=== PATIENT | male | born 1995 | race Caucasian/White ===

== ENCOUNTER 2024-06-17 19:59 | Emergency (ER) | payer MEDICAID ==
[~2024-06-17] VITALS: Ht 172.7 cm; Wt 82.0 kg
[2024-06-17 20:04] VITALS: O2SAT 98
[2024-06-17] MEDS ORDERED: NALO4SPR BOTHNSTRLS (20:39)
[2024-06-17 21:44] LABS: BASOPHILS % 0.5 % (0.0-2.0); CHLORIDE 101 mEq/L (98-107); HEMATOCRIT. 47.8 % (42.0-52.0); HEMOGLOBIN. 16.5 g/dL (14.0-18.0); LYMPHOCYTES % 29.4 % (20.0-50.0); MEAN CORPUSCULAR HEMOGLOBIN 31.6 pg (28.0-32.0); MEAN CORPUSCULAR HGB CONC 34.6 g/dL (31.0-37.0); MEAN CORPUSCULAR VOLUME 91.4 fL (80.0-94.0); MEAN PLATELET VOLUME 7.3 fl (7.4-10.4); MONOCYTES % 4.9 % (2.0-8.0); NEUTROPHILS % 63.2 % (40.0-76.0); PLATELET 256 x1000/uL (130-400); POTASSIUM 3.8 mEq/L (3.5-5.1); RED BLOOD CELL COUNT 5.23 mill/uL (4.7-6.1); RED CELL DISTRIBUTION WIDTH 12.3 % (11.6-14.6); SODIUM 138 mEq/L (136-145); WHITE BLOOD COUNT 4.9 x1000/uL (4.5-11.0)
[2024-06-17 21:45] LABS: CARBON DIOXIDE 28 mEq/L (21-32)
[2024-06-17 21:46] LABS: CALCIUM 9.2 mg/dL (8.7-10.4)
[2024-06-17 21:50] LABS: CREATININE 0.7 mg/dL (0.6-1.3)
[2024-06-17 21:51] LABS: GLUCOSE 152 mg/dL (70-105); UREA NITROGEN BLOOD 8 mg/dL (9-23)
[2024-06-17 22:44] LABS: ETHANOL BLOOD 409 mg/dL (<10)
[2024-06-18 05:39] VITALS: BP 111/66; PULSE 88; RESP 20; TEMP 37.00296; O2SAT 98
== END 2024-06-18 05:44 | disposition home or self-care (01) ==
LOC: EDBD 19:59 → ER 19:59
DX: T40.601A Poisoning by unspecified narcotics, accidental (unintentional), initial encounter (principal); F10.129 Alcohol abuse with intoxication, unspecified; Y92.9 Unspecified place or not applicable; Y90.9 Presence of alcohol in blood, level not specified
CPT/HCPCS: 80048; 80320; 85025; 36415; 99283; Z7610; G0480

== ENCOUNTER 2024-06-18 08:58 | Emergency (ER) | payer MEDICAID ==
[~2024-06-18] VITALS: Ht 172.7 cm; Wt 69.0 kg
[~2024-06-18 08:58] MED LIST: NALO4SPR BOTHNSTRLS
[2024-06-18 09:12] VITALS: BP 154/102; PULSE 121; RESP 18; TEMP 98.3; O2SAT 97; O2SAT 99
[2024-06-18 09:53] LABS: BASOPHILS % 0.5 % (0.0-2.0); EOSINOPHILS % 0.5 % (0.0-5.0); HEMATOCRIT. 52.7 % (42.0-52.0); HEMOGLOBIN. 17.8 g/dL (14.0-18.0); LYMPHOCYTES % 19.7 % (20.0-50.0); MEAN CORPUSCULAR HEMOGLOBIN 31.6 pg (28.0-32.0); MEAN CORPUSCULAR HGB CONC 33.8 g/dL (31.0-37.0); MEAN CORPUSCULAR VOLUME 93.5 fL (80.0-94.0); MONOCYTES % 4.4 % (2.0-8.0); NEUTROPHILS % 74.9 % (40.0-76.0); RED BLOOD CELL COUNT 5.64 mill/uL (4.7-6.1); RED CELL DISTRIBUTION WIDTH 12.6 % (11.6-14.6); WHITE BLOOD COUNT 8.3 x1000/uL (4.5-11.0)
[2024-06-18 09:55] LABS: DIFFERENTIAL COMMENT 1
[2024-06-18] MEDS: MAGNESIUM/ALUMINUM HYDROXIDE/SIMETHICONE 30ML UDC PO STA (09:55)
[2024-06-18] MEDS: SODIUM CHLORIDE 0.9% 1,000 ML IV ONE (09:55)
[2024-06-18] MEDS: ONDANSETRON HCL 4MG/2ML INJ IV STA (09:55)
[2024-06-18 09:56] LABS: CHLORIDE 100 mEq/L (98-107); POTASSIUM 3.8 mEq/L (3.5-5.1); SODIUM 138 mEq/L (136-145)
[2024-06-18 09:57] LABS: CARBON DIOXIDE 23 mEq/L (21-32)
[2024-06-18 09:58] LABS: CALCIUM 9.4 mg/dL (8.7-10.4)
[2024-06-18 10:02] LABS: CREATININE 0.9 mg/dL (0.6-1.3); GLUCOSE 187 mg/dL (70-105)
[2024-06-18 10:03] LABS: ETHANOL BLOOD 218 mg/dL (<10); UREA NITROGEN BLOOD 11 mg/dL (9-23)
[2024-06-18 10:04] LABS: ALANINE AMINOTRANSFERASE 85 IU/L (10-49); ALBUMIN 4.9 g/dL (3.2-4.8); ASPARTATE AMINOTRANSFERASE 52 IU/L (<34)
[2024-06-18 10:05] LABS: BILIRUBIN DIRECT 0.3 mg/dL (<=3.0); PROTEIN TOTAL 7.8 g/dL (6.0-8.3)
[2024-06-18] MEDS: FAMOTIDINE 20MG/2ML VIAL IV STA (10:11)
[2024-06-18 10:18] LABS: INR 1.1; PROTHROMBIN TIME 12.6 sec (9.6-11.0)
[2024-06-18 10:28] LABS: PLATELET 329 x1000/uL (130-400)
== END 2024-06-18 12:11 | disposition home or self-care (01) ==
LOC: ER 09:20
DX: R10.9 Unspecified abdominal pain (principal); R11.2 Nausea with vomiting, unspecified; F10.20 Alcohol dependence, uncomplicated; Y90.9 Presence of alcohol in blood, level not specified
CPT/HCPCS: 80076; 80048; 80320; 83690; 85025; 85610; 36415; 96361; 96374; 96375; 99284; J3490; J2405; J7030; G0480

== ENCOUNTER 2025-03-01 08:06 | Inpatient (IN) | payer MEDICAID ==
[~2025-03-01] VITALS: Ht 180.3 cm; Wt 83.0 kg
[2025-03-01 08:07] VITALS: O2SAT 99
[2025-03-01 09:01] LABS: EOSINOPHILS % 1.1 % (0.0-5.0); HEMATOCRIT. 41.8 % (42.0-52.0); HEMOGLOBIN. 14.7 g/dL (14.0-18.0); LYMPHOCYTES % 12.5 % (20.0-50.0); MEAN CORPUSCULAR HEMOGLOBIN 31.8 pg (28.0-32.0); MEAN CORPUSCULAR HGB CONC 35.3 g/dL (31.0-37.0); MEAN CORPUSCULAR VOLUME 90.1 fL (80.0-94.0); MEAN PLATELET VOLUME 8.1 fl (7.4-10.4); NEUTROPHILS % 77.4 % (40.0-76.0); PLATELET 228 x1000/uL (130-400); RED BLOOD CELL COUNT 4.64 mill/uL (4.7-6.1); RED CELL DISTRIBUTION WIDTH 14.5 % (11.6-14.6); WHITE BLOOD COUNT 4.7 x1000/uL (4.5-11.0)
[2025-03-01 09:19] LABS: CHLORIDE 101 mEq/L (98-107); POTASSIUM 4.6 mEq/L (3.5-5.1); SODIUM 135 mEq/L (136-145)
[2025-03-01 09:20] LABS: CARBON DIOXIDE 25 mEq/L (21-32)
[2025-03-01 09:25] LABS: CREATININE 0.8 mg/dL (0.6-1.3)
[2025-03-01 09:26] LABS: ETHANOL BLOOD < 10 mg/dL (<10); GLUCOSE 105 mg/dL (70-105); UREA NITROGEN BLOOD 11 mg/dL (9-23)
[2025-03-01 09:30] LABS: TROPONIN I HIGH SENSITIVITY < 4 ng/L (3.0-53)
[2025-03-01 09:32] LABS: PROTHROMBIN TIME 11.1 sec (9.6-11.0)
[2025-03-01 09:50] LABS: CLARITY URINE CLEAR (CLEAR); COLOR URINE YELLOW (YELLOW); GLUCOSE URINE NEGATIVE (NEGATIVE); KETONES URINE 3+ (NEGATIVE); LEUKOCYTE ESTERASE URINE NEGATIVE (NEGATIVE); NITRITE URINE NEGATIVE (NEGATIVE); OCCULT BLOOD URINE NEGATIVE (NEGATIVE); PH URINE 7.5 (4.5-8.0); PROTEIN URINE NEGATIVE (NEGATIVE); SPECIFIC GRAVITY URINE 1.067 (1.005-1.030)
[2025-03-01 10:34] LABS: *AMPHETAMINES SCREEN URINE NEGATIVE (NEGATIVE); *BARBITURATES SCREEN URINE NEGATIVE (NEGATIVE); *BENZODIAZEPINES SCREEN URINE PRESUMPTIVE POSITIVE (NEGATIVE); *COCAINE SCREEN URINE NEGATIVE (NEGATIVE); CANNABINOID URINE SCREEN PRESUMPTIVE POSITIVE (NEGATIVE); ECSTASY MDMA SCREEN URINE NEGATIVE (NEGATIVE); METHADONE URINE SCREEN NEGATIVE (NEGATIVE); OPIATES URINE SCREEN NEGATIVE (NEGATIVE); PHENCYCLIDINE URINE SCREEN NEGATIVE (NEGATIVE)
[2025-03-01 13:30] VITALS: BP 159/104; PULSE 74; RESP 20; TEMP 36.8; O2SAT 98
[2025-03-01] MEDS ORDERED: DIPHENHYDRAMINE 50MG/ML VIAL IV PRN (13:45)
[2025-03-01] MEDS ORDERED: MAGNESIUM/ALUMINUM HYDROXIDE/SIMETHICONE 30ML UDC PO PRN (13:45)
[2025-03-01] MEDS ORDERED: DEXTROSE 50% WATER 50ML SYRINGE IV PRN (13:45)
[2025-03-01] MEDS ORDERED: ACETAMINOPHEN 325MG TABLET PO PRN (13:45)
[2025-03-01] MEDS ORDERED: ZOLPIDEM TARTRATE 5MG TABLET PO PRN (13:45)
[2025-03-01] MEDS ORDERED: ONDANSETRON HCL 4MG/2ML INJ IV PRN (13:45)
[2025-03-01] MEDS: CLONIDINE 0.1MG TABLET PO PRN (13:51)
[2025-03-01] MEDS: IOHEXOL-350 100 ML BOTTLE ONE (14:02)
[2025-03-01] MEDS: SODIUM CHLORIDE 0.9% 3ML FLUSH IVF SCH (14:06)
[2025-03-01] MEDS: ACETAMINOPHEN 325MG TABLET PO PRN (14:06)
[2025-03-01 14:19] VITALS: BP 159/104; PULSE 73; RESP 20; TEMP 36.6
[2025-03-01] MEDS ORDERED: FOLIC ACID IV SCH (14:45)
[2025-03-01] MEDS ORDERED: THIAMINE HCL IV SCH (14:45)
[2025-03-01] MEDS ORDERED: SODIUM CHLORIDE 0.9% IV SCH (14:45)
[2025-03-01 15:36] LABS: HEPATITIS B SURFACE ANTIGEN NEGATIVE (Negative)
[2025-03-01 15:57] LABS: HEPATITIS C AB NON REACTIVE (Neg) (Negative)
[2025-03-01] MEDS: BLOOD SUGAR DIAGNOSTIC STRIP TEST SCH (16:38)
[2025-03-01] MEDS: INSULIN LISPRO 100 UNITS/ML SUBCUT SCH (16:38)
[2025-03-01] MEDS: FOLIC ACID 1 MG, THIAMINE HCL 100 MG, MVI, ADULT NO.1 10 ML in SODIUM CHLORIDE 0.9% 1,0... IV SCH (16:52)
[2025-03-01 16:53] VITALS: BP 152/99; PULSE 62; RESP 20; O2SAT 97
[2025-03-01 20:00] VITALS: BP 144/95; PULSE 70; RESP 18; TEMP 36.7; O2SAT 98
[2025-03-02] VITALS: BP 111/70; PULSE 45; RESP 22; TEMP 36.7; O2SAT 97
[2025-03-02 04:00] VITALS: BP 136/72; PULSE 78; RESP 20; TEMP 36.5; O2SAT 96
[2025-03-02 08:00] VITALS: BP 148/99; PULSE 65; RESP 18; TEMP 36.8; O2SAT 98
[2025-03-02 12:00] VITALS: BP 132/94; PULSE 75; RESP 20; TEMP 36.7; O2SAT 98
[2025-03-02 16:00] VITALS: BP 131/88; PULSE 73; RESP 20; TEMP 36.9; O2SAT 95
[2025-03-02 20:00] VITALS: BP 123/86; PULSE 73; RESP 22; TEMP 36.6; O2SAT 95
[2025-03-03] VITALS: BP 121/80; PULSE 64; RESP 19; TEMP 36.8; O2SAT 92
[2025-03-03 04:00] VITALS: BP 132/95; PULSE 79; RESP 18; TEMP 36.9; O2SAT 92
[2025-03-03 07:30] VITALS: PULSE 67; RESP 18; O2SAT 98
== END 2025-03-03 08:05 | disposition left against medical advice (07) | DRG 48 ==
LOC: ER 08:06 → 3WST 11:01
PROVIDERS: ADMIT Internal Medicine; ATTEND Internal Medicine
DX: G90.9 Disorder of the autonomic nervous system, unspecified (principal); E11.9 Type 2 diabetes mellitus without complications; F41.9 Anxiety disorder, unspecified; I10 Essential (primary) hypertension; Z53.29 Procedure and treatment not carried out because of patient's decision for other reasons; Z91.148 Patient's other noncompliance with medication regimen for other reason; Z59.01 Sheltered homelessness
CPT/HCPCS: 36415; 70496; 70498; 70551; 71045; 80048; 80061; 80305; 80320; 81003; 82962; 83036; 84484; 85025; 86705; 87340; 93005; 99291; A4606; J3411; J3490; J7030; Q9967; G0480